=== PATIENT | male | born 1955 | race Caucasian/White ===

== ENCOUNTER 2017-02-19 15:53 | Inpatient (IN) | payer OTHER ==
[~2017-02-19] VITALS: Ht 185.4 cm; Wt 124.9 kg
--- NOTE | ~2017-02-19 | CO ---
ADMIT: 02/19/2017 RM/LOC: 307 [facility] MR#: [id number] [address] [address] MAYNOR MCKEON [address] [place] [address] Consultation SEX: M AGE: 61 : 1955 Corrected: 02/21/2017 0747 njv DATE OF CONSULTATION: 02/20/2017 ATTENDING PHYSICIAN: Zafar Small CONSULTING PHYSICIAN: Yo Ramirez MD HISTORY: This is a 61-year-old male seen in surgical consultation for Dr. Small for possible necrotizing soft tissue infection. Maynor reports that of last week, he started having pain and swelling in the right lower extremity. This suddenly worsened yesterday prompting a visit to the ER. He was found to have marked cellulitis of the right lower extremity. He was admitted, placed on IV antibiotic therapy. Overnight, he had progression of some of the wounds including those in proximal right thigh and groin area. These have had ischemic areas develop of the epidermis overlying them now. He does report that the area has hurt but does not hurt quite as bad now as it did earlier even in the day. He has gone into atrial fibrillation since admission. He was on Cardizem drip for that, but now is hypotensive and that has been held. He denies any prior difficulties with cellulitis in this extremity and denies any recent trauma to the wound. He is without other additional history. PAST MEDICAL HISTORY: Prediabetes is his only known comorbidity but he does not routinely see a physician. MEDICATIONS: At home none. ALLERGIES: NO KNOWN MEDICAL ALLERGIES. FAMILY HISTORY: Significant for diabetes and heart disease. SOCIAL HISTORY: He is with 2 children. He does not drink alcohol. Does not smoke. He does chew smokeless tobacco. REVIEW OF SYSTEMS: A 10-point review of systems was performed. Symptoms mentioned in the history of present illness are the only positives and the remainder of the review of systems is negative for recent change. PHYSICAL EXAM: GENERAL: Maynor is lethargic but does arouse and is oriented to person, place, and time. He does complain of some pain in the right leg currently. VITAL SIGNS: Temperature is overnight where a T-max of 104 degrees, blood pressure currently was 84/50, pulse of 90, respiratory rate was 26 last night, improved today to 20. HEENT: Head is atraumatic, normocephalic. Sclerae appear anicteric. Trachea is midline. NECK: There is no neck lymphadenopathy. LUNGS: Diminished at bilateral bases. HEART: Regular rate and rhythm. ADMIT: 02/19/2017 RM/LOC: 307 [facility] MR#: [id number] [address] [place] [phone] MAYNOR MCKEON [address] [place] [address] Consultation SEX: M AGE: 61 : 1955 ABDOMEN: Soft and nontender. EXTREMITIES: Reveal marked swelling in the right lower extremity with cellulitic changes below the knee. He also has areas of epidermal necrosis overlying the right proximal medial thigh measuring 7-8 cm in diameter. There is tenderness to palpation. I cannot palpate subcutaneous emphysema. NEUROLOGICAL: There is no neurologic deficit of any of his extremities. LABORATORY STUDIES: Lactic acid was 3.3, procalcitonin of greater than 136. White blood cell count on admission was 11.2, hemoglobin of 12.2, and platelet count of 116. Sodium 128, potassium 3.7, chloride 97, CO2 of 17, BUN of 38, creatinine of 3.2, and GFR of 20. IMPRESSION: 1. Sepsis. 2. Possible necrotizing soft tissue infection of the right groin and lower extremity. PLAN: I have recommended wound exploration with evaluation for underlying necrosis. I discussed the risks of this in detail with Maynor and the need if there is evidence of necrotizing soft tissue for debridement of that sharply. He understands that and agrees to proceed with exploration. He is currently receiving IV antibiotic therapy, IV fluid resuscitation for the sepsis, and is also currently starting on vasopressor support with Levophed. I have discussed his case in detail with Dr. Small as well and all are in agreement with the plan as described. Yo Ramirez MD/ alfredito JOB #: [id number] CC: Zafar Small, Attending Physician Zafar Small, Family Physician Corrected: 02/21/2017 0747 njv
--- NOTE | ~2017-02-19 | ECH ---
Transthoracic Echocardiography Report (TTE) Demographics Patient Name RENZO MCKEON Date of Study 02/20/2017 Patient Number [id number] Visit Number [id number] Date of 1955 Room Number 307 Accession Number [id number] Gender Male Age 61 year(s) Referring Geovanny Sotelo Manager Pipeline Reina Trevizo [facility] Physician Physician Interpreting Leilani Woodruff MD Music Therapy Teacher Physician Supervising Ordering Physician Geovanny Sotelo MD, MD/P Nurse Stress Supervisor Residential Conclusions Summary Technically difficult exam to perform with patient supine, head of bed 30 degrees and on ventilator. Images obtained are of fair quality. The estimated left ventricular ejection fraction is 60-65%. The left ventricle is moderately dilated . Mild left ventricular hypertrophy. The left atrium is mildly dilated by LA volume index measurement. No significant valvular abnormalities. Procedure Type of Study TTE procedure:Echo Complete SF. Procedure Date Date: 02/20/2017 Start: 02:49 PM Technical Quality: Fair due to patient on ventilator. Indications:Atrial fibrillation and Hypotension. Additional Indications:on ventilator Appropriate Use Criteria: 9 Height: 73 inches Weight: 275 pounds BSA: 2.46 m Rhythm: Within normal limits HR: 94 bpm BP: 67/47 mmHg M-Mode/2D Measurements LV Diastolic Dimension: 6.55 cm LV Systolic Dimension: 4.87 cm LV Septum Diastolic: 0.98 cm LV PW Diastolic: 1.18 cm AO Root Dimension: 2.52 cm Cardiac Output: 3.95 l/min LA Dimension: 4.29 cm Cardiac Index: 1.61 l/min*m LA volume index: 41 ml/m LVOT: 1.68 cm RV Base: 3.5 cm LVOT VTI: 18.97 cm RV Mid: 2.8 cm LV Stroke volume: 42.03 ml RV Length: 6.9 cm LV Stroke volume index: 17.09 ml/m TAPSE: 1.7 cm Doppler Measurements AV Peak Velocity: 1.69 m/s MV Peak E-Wave: 1.31 m/s AV Peak Gradient: 11.42 mmHg AV Mean Gradient: 8 mmHg LVOT Peak Velocity: 1.18 m/s AV Area (Continuity):1.36 cm PV Peak Velocity: 1.14 m/s PV Peak Gradient: 5.2 mmHg RA Area: 13.48 cm Findings Left Ventricle The left ventricle is moderately dilated . Mild left ventricular hypertrophy. Diastolic function indeterminate due to patient's arrhythmia. Right Ventricle Normal right ventricle structure and function. Left Atrium The left atrium is mildly dilated by LA volume index measurement. Right Atrium Normal right atrial size. Mitral Valve Normal mitral valve structure and function. Mild mitral regurgitation by color Doppler. Aortic Valve The aortic valve was not well imaged. Tricuspid Valve Normal tricuspid valve structure and function. Trivial tricuspid regurgitation by color Doppler. Pulmonic Valve The pulmonic valve is not well visualized. Pericardial Effusion No evidence of pericardial effusion. Miscellaneous Visualized portions of the aortic root and ascending aorta appear normal in size. Pleural Effusion No evidence of pleural effusion. Contractility Score LV regional wall motion:(0-Non visualized 1-Normal 2-Hypokinesis 3-Akinesis 4-Dyskinesis 5-Aneurysm) Signature
--- NOTE | 2017-02-20 12:32 | HP ---
ADMIT: 02/19/2017 RM/LOC: 307 [facility] MR#: [id number] [address] [address] RENZO PACE [address] [place] [address] History and Physical SEX: M AGE: 61 : 1955 DATE OF SERVICE: CHIEF COMPLAINT: Weakness, chills, and rigors. HISTORY OF PRESENT ILLNESS: Renzo Pace is a very nice 61-year-old man with a past medical history of prediabetes per some health fair evaluations. 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 He is accompanied by his , who is very nice. She informs me that he got sick initially about . Did not want to come into the ER. He has not been to a doctor for years, but ultimately she convinced him to come in. He is evaluated in the ER and noted to be severely ill with severe sepsis. Dr. Torres did initiate appropriate goal-directed therapy with 30 mL/kg fluid resuscitation as well as initiation of antibiotic therapy. 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 He did have a tick bite on his right chest, but no other rashes or anything to speak of. He did have sudden onset of some redness and an ulcer on his right lower rees. He does have some edema of his lower extremities chronically. He did develop redness, which distally track up into his right leg. He has severe cellulitis on his right lower extremity as well as into his right medial thigh. He otherwise does not drink alcohol. He does not smoke. He does chew during the days when he works. He does have some poor dentition as well. He takes no medications. Right now, he is not in pain, he is a bit tremulous and he is alert and oriented and interacting appropriately; however, he is quite uncomfortable. PAST MEDICAL HISTORY: Prediabetes per health fair. MEDICATIONS: None. ALLERGIES: NONE. FAMILY HISTORY: Mother of diabetes. Brothers and sisters; one brother committed suicide and did have other family members, they have in an apartment fire. Father is living with heart disease. He is and he does have 2 children, they are healthy. 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 He does not drink alcohol. He does not smoke, but he does chew regularly. He has not been to the doctor for a very long time and he does have some poor dentition. REVIEW OF SYSTEMS: Complete review of systems reviewed per HPI. PHYSICAL EXAMINATION: VITAL SIGNS: Blood pressure 171/81, pulse is 126, respiratory rate 26. He is 95% on room air and his temperature is 102.4. GENERAL: He is alert and oriented x3. He is uncomfortable. He does have some rigors. HEENT: Normocephalic, atraumatic. Eyes, extraocular movements are intact. Pupils equal, round, responsive to light. There is some slight. He does have no nasal discharge. Very dry mucous membranes. He does have furrowing of his ADMIT: 02/19/2017 RM/LOC: 307 [facility] MR#: [id number] [address] [place] [id number] RENZO PACE [address] [place] [address] History and Physical SEX: M AGE: 61 : 1955 tongue. Severely poor dentition on his mandibular teeth, multiple decayed teeth. NECK: Supple. HEART: Tachycardic, but regular. LUNGS: Diminished bilaterally. ABDOMEN: Soft, nontender. EXTREMITIES: He does have some pedal edema. He has an ulcer on his anterior rees, cellulitis of his right lower extremity, cellulitis of his left upper and medial thigh. No erythema or redness or pain into his scrotum or his penis. LABORATORY AND X-RAY DATA: Hemoglobin is 13.2, white blood cells are 13.7, platelets 147, lactic acid elevated at 5.1, INR is mildly prolonged 1.18, pH is 7.36, pCO2 is 19, PO2 is 64, blood cultures are drawn and pending. Sodium is 124, potassium is 4.1, chloride is 87, bicarb is 14, glucose is 522, BUN is 34, creatinine is 2.6, calcium is 8.9, magnesium is 1.9, total protein 7.5, albumin is 2.6, AST is 22, ALT is 27, gap is 27, troponin is less than 0.015. CK-MB is 1.5, CK is 168, hemoglobin A1c is 12.6, serum ketones are small. Corrected sodium is approximately 134 secondary to accounting for his glucose. ASSESSMENT AND PLAN: 1. Severe sepsis. 2. Cellulitis. 3. Acute renal failure. 4. Hyperosmolar hyperglycemic state. 5. Type 2 diabetes mellitus. 6. Poor dentition. 7. Sinus tachycardia. 8. Hyponatremia. 9. Prolonged anion gap. 10.Lactic acidosis. 11.Metabolic acidosis. This is a 61-year-old man, who has very minimal medical evaluation in years. Had a rather sudden onset pain in is right anterior rees with ulcer, did develop progressive cellulitis. He does have pre-diabetes. Only thing of his history of tobacco use. The patient is severely ill with severe sepsis. He does have multiple metabolic derangements. He has multi-system dysfunction with acute renal failure and various pH disturbances. Secondary to some prediabetes and probably long-standing type 2 diabetes, even though he has serum ketones, I think he is more consistent with a hyperglycemic hyperosmolar state. However, we are going to treat him with an aggressive insulin infusion protocol. We are going to give him the 30 mL/kg fluid resuscitation followed by 150 mL an hour of normal saline. I did KCl as well as we will go ahead and maintain him on some broad antibiotics with Zosyn, vancomycin as well as Levaquin. With his tick bite exposure, I will add some doxycycline as well. We will monitor with q.4 hours labs and we will maintain him on just some clears or water, otherwise n.p.o. We will place him on some heparin subcu for prophylaxis. We will have Wound Care see him, put him on some EdemaWear as ADMIT: 02/19/2017 RM/LOC: 307 [facility] MR#: [id number] [address] [address] RENZO PACE [address] [place] [address] History and Physical SEX: M AGE: 61 : 1955 well. Cardiac enzymes are negative. I will go ahead and get a 12-lead EKG as well. I discussed with his as well as Renzo that he is severely critically ill and is very fortunate that his did bring him into the hospital as he does need aggressive therapy at this time. There is no crepitus or anything like that. No areas of necrosis. There is no pain in the scrotum or his penis. There is no cellulitis. If this does progress into his genitals, then we will certainly need to progress with higher level imaging and if that is the case and if he does have transition into the scrotum or penis, we will have to consider transition to an alternate institution. We will proceed aggressively and adjust our plan accordingly based on his clinical progress. I discussed this plan with the patient, who expressed understanding, was in agreement, and had no further questions. Zafar Small MD/ alfredito JOB #: [id number] CC: Zafar Small, Attending Physician Zafar Small, Family Physician
--- NOTE | 2017-02-20 14:27 | DS ---
ADMIT: 02/19/2017 RM/LOC: 307 [facility] MR#: [id number] [address] [address] RENZO MCKEON [address] [place] [address] Discharge Summary SEX: M AGE: 61 : 1955 ADMISSION DATE: 02/19/2017 DISCHARGE DATE: 02/20/2017 ATTENDING AT TIME OF DISCHARGE: Zafar Small MD CONSULTATIONS: 1. Ryne Jean MD, Critical Care Medicine. 2. Yo Ramirez MD, General Surgery. 3. Lucho Duke MD, Cardiology. 4. Radha Ochoa MD, Infectious Disease FINAL DIAGNOSES: 1. Necrotizing fasciitis. 2. Severe sepsis. 3. Acute renal failure. 4. Hyperglycemic, hyperosmolar state, resolved. 5. Type 2 diabetes mellitus. 6. New atrial fibrillation. 7. Cellulitis. 8. Chronic venous stasis. 9. Lactic acidosis. 10.Metabolic acidosis. 11.Hypophosphatemia. 12.Tobacco abuse. 13.Hyponatremia REASON FOR ADMISSION: Please see H and P; however briefly, admitted with cellulitis, presence for 4 days. HOSPITAL COURSE: Initiated on broad-spectrum antibiotic therapy as well as aggressive goal-directed therapy for sepsis. The patient did develop necrosis on medial thigh, no present on admission. He is taken into the OR. Does have local debridement with Dr. Ramirez. The patient does require addition of Levophed as well as bicarbonate infusion to correct acid-base disturbances. He is maintained on aggressive fluid resuscitation. He has approximately 12 L infused at this time. He did develop atrial fibrillation with rapid ventricular response, which has since converted, weaning off the Cardizem infusion. Receiving broad-spectrum antibiotics now, initially on vancomycin and Zosyn, Levaquin and doxycycline secondary to a history of tick bite and a small local irritation in his right chest, transitioned to daptomycin, clindamycin as well as Zosyn. He is hemodynamically stabilizing at this time with normal sinus rhythm, heart rates of 90s, appropriate blood pressures with MAPs of 65 or greater. However, with persistent acid-base disturbance, 7.0 in the OR, now 6.9, initiating on further bicarbonate infusion. I have contacted [facility] who has accepted the patient. We have also contacted the flight team. When we have improved his acid-base disturbances, stabilized his oxygenation, do plan to transport patient by air to the [facility]. ADMIT: 02/19/2017 RM/LOC: 307 [facility] MR#: [id number] [address] [place] [phone] RENZO MCKEON [address] [place] [address] Discharge Summary SEX: M AGE: 61 : 1955 DISPOSITION: [facility] DISCHARGE CONDITION: Stable for transfer by air, but guarded prognosis. MEDICATIONS: Please see transfer medications. TRANSFER INSTRUCTIONS: The patient will transfer by air to the [facility] to the Surgical Critical Care Services. The patient will likely need further debridement for necrotizing fasciitis. Will also need continued critical care management. I had a discussion with the in detail including the severe nature of his illness as well as the need to transfer him to a tertiary [facility]. She does express understanding of this plan, expresses agreement and had no further questions. Thirty-five minutes spent on discharge activities of the patient. Zafar Small MD/ poli JOB #: [id number] CC: Zafar Small MD, Attending Physician Zafar Small MD, Family Physician
--- NOTE | 2017-02-20 16:22 | CO ---
ADMIT: 02/19/2017 RM/LOC: 307 [facility] MR#: [id number] [address] [address] RENZO PACE [address] [place] [address] Consultation SEX: M AGE: 61 : 1955 DATE OF CONSULTATION: 02/20/2017 ATTENDING PHYSICIAN: Zafar Small CONSULTING PHYSICIAN: Ryne Jean MD HISTORY OF PRESENT ILLNESS: Mr. Pace is a 61-year-old white male, seen in consultation for acute severe sepsis, acute respiratory failure, and ventilator management. He is 61-year-old male, with no previous medical history, however, he has not been in to see a doctor in about 30 years. It noted on his admitting labs that his hemoglobin A1c was greater than 12, and obviously he likely has diabetes. 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 However, there was report of a tick bite on his chest sometime ago without any problems. He was presumptively admitted with diagnosis of necrotizing fasciitis. He was seen in the emergency room with severe sepsis, was given IV fluid resuscitation and started on antibiotic therapy. Clinically looked a little bit better today, but then his lower extremity started having worsening severe cellulitis with an area that was black and necrotizing. He subsequently underwent emergent surgery today with debridement of his wound and obtaining cultures. Antibiotics were also adjusted. It was noted as well that he went into atrial fibrillation, was placed on Cardizem, spontaneously converted back to sinus rhythm. Postoperatively, he was seen, was intubated and sedated on mechanical ventilation. PAST MEDICAL HISTORY: Unremarkable. However, as mentioned above, he has significant elevation of his hemoglobin A1c. ALLERGIES: HE HAS NO LISTED MEDICAL ALLERGIES. MEDICATIONS: He is on no medications prior to entry into the hospital. SOCIAL HISTORY: He is , lives at home with his . Nonsmoker, though he does chew smokeless tobacco. FAMILY HISTORY: Heart disease and diabetes. REVIEW OF SYSTEMS: Not able to be obtained from the patient at this time because of his critical status. ADMIT: 02/19/2017 RM/LOC: 307 [facility] MR#: [id number] [address] [phone] RENZO PACE [address] [place] [address] Consultation SEX: M AGE: 61 : 1955 PHYSICAL EXAM: VITAL SIGNS: Currently was afebrile (in fact hypothermic). It was noted T-max overnight was 103.6. Pulse now 100. Blood pressure in the 90 systolic. Oxygen saturations in the upper 80s. He initially came back on mechanical ventilation, tidal volume of 400 with a rate of 15, and 100% oxygen and 10 of PEEP. After arterial blood gases returned, he had his rate increased to 20 and tidal volume increased to 450. He is also started on bicarb infusion. HEENT: Show endotracheal tube in place. LUNGS: Diminished but clear bilaterally without significant rales, rhonchi, or wheezes. HEART: Regular. ABDOMEN: Absent bowel sounds. Slightly distended. No guarding or rigidity identified. EXTREMITIES: Reveal cool peripheral findings. He does have bilateral pulses in the lower extremities. Postoperative dressings in place, both the thigh and lower extremity. He does have some stasis changes on the left side. LABS AND X-RAYS: Reviewed as mentioned above. ASSESSMENT: Severe sepsis with septic shock, has responded partially to fluid resuscitation, he is now on Levophed. May need to consider adding either vasopressin or epinephrine to maintain pressures. He has necrotizing fasciitis of soft tissue of his right lower extremity. He has undergone surgical debridement and cultures. Antibiotics have been adjusted accordingly as well. He has diabetes mellitus. He has severe metabolic acidosis secondary to his infection. PLAN: As mentioned above, we are going try and stabilize him here with blood pressure, improve his pH, and then plan is to transfer to the [facility] for further care. Likely he will need more surgery and debridement, continue antibiotics. He is at high risk for ARDS, although I do not see any on his current chest x-ray. Additionally, he had transient atrial fibrillation, which may have been response to his infection and sepsis, need to be monitored. We will continue to assist here prior to his transfer. Ryne Jean MD/ alfredito JOB #: [id number] CC: Zafar Small, Attending Physician ADMIT: 02/19/2017 RM/LOC: [address] [address] MR#: [id number] [address] [place] [phone] RENZO PACE [address] [place] [address] Consultation SEX: M AGE: 61 : 1955 Zafar Small, Family Physician
--- NOTE | 2017-02-22 08:33 | OR ---
ADMIT: 02/19/2017 RM/LOC: [address] [place] [address] MR#: [id number] [address] [address] RENZO MCKEON [address] [place] [address] Operative/Delivery Room Report SEX: M AGE: 61 : 1955 SURGERY DATE: 02/20/2017 SURGEON: Yo Ramirez MD PREOPERATIVE DIAGNOSIS: Possible necrotizing soft tissue infection of the right proximal medial thigh and right rees. POSTOPERATIVE DIAGNOSIS: Possible necrotizing soft tissue infection of the right proximal medial thigh and right rees. PROCEDURE: Debridement of necrotizing soft tissue and infection extending to the fascia of the right proximal medial thigh and right anterior rees encompassing wounds measuring 15 cm x 8 cm, 5 x 5 cm, and 6 x 6 cm. ANESTHESIA: General. ESTIMATED BLOOD LOSS: Minimal. DESCRIPTION OF PROCEDURE: The patient was taken to the operating room and placed supine on the operating room table. General anesthesia was established. The right leg was prepped and draped and extremity draped in the usual fashion. Inspection of the epidermal necrotic area in the right proximal medial thigh, an incision was made through this, which revealed necrotic tissue extending to the subcutaneous fat. This was debrided sharply back to normal bleeding viable skin margins. Dissection proceeded also deeply through all the subcutaneous fat to the fascia. The fascia appeared to be viable as did the underlying musculature. The fat was debrided back to healthy yellow-appearing bleeding fat. There was no residual martin tissue upon completion. In the separate necrotic area of the proximal medial thigh, similar sharp debridement was performed back to viable margins of skin and subcutaneous tissue. This again also extended to the fascia, but did not seem to involve the fascia or muscle. There was no clear direct communication ADMIT: 02/19/2017 RM/LOC: [address] [place] [address] MR#: [id number] [id number] [facility] [address] [place] [id number] MIKE RENZO Baxter [address] [place] [address] Operative/Delivery Room Report SEX: M AGE: 61 : 1955 between the two areas of necrosis at this level. There was no other surrounding evidence for residual necrotic tissue in the thigh. Inspection of the right anterior rees, however, revealed necrotic tissue. The skin was incised at this level, and again skin and subcutaneous tissue was . This was again debrided sharply back to live viable nonischemic portions. The tissue was debrided down to the fascia. The musculature and fascia appeared intact without extension into the compartments. Cautery was used for hemostasis of the viable margins. The wounds were then packed with Betadine- soaked Kerlix. The patient tolerated the procedure in guarded condition. Dressings were placed. The patient was then transported back to the ICU and arrangements were made for transfer to the [facility] for their expertise and care. Yo Ramirez MD/ alfredito JOB #: [id number] CC: Zafar Small MD, Attending Physician Zafar Small MD, Family Physician
--- NOTE | 2017-02-26 21:28 | ER ---
ADMIT: 02/19/2017 RM/LOC: 307 [facility] MR#: [id number] [address] [address] RENZO MCKEON [address] [place] [address] Emergency Room Report SEX: M AGE: 61 : 1955 DATE: 02/19/2017 CHIEF COMPLAINT: Right leg pain and flu-like symptoms. HISTORY OF PRESENT ILLNESS: The patient is a 61-year-old male, who has no chronic medical conditions, but apparently is borderline diabetic, who comes in for 2 days of worsening pain, swelling, and redness on his right lower extremity. He denies any trauma. He states that the redness in his lower leg has been expanding over the past 24 to 48 hours, he has had some weeping from it and actually developed some redness in his proximal thigh. He states he feels terrible drinking and urinating a lot and feels nauseous, but has not been vomiting. He denies any chest pain or any abdominal pain. Additionally, states he was bit by a tick on his right anterior chest within 12 to 24 hours prior to the lesion on his right leg becoming painful and red. PAST MEDICAL HISTORY: Unremarkable other than borderline diabetes. No other reason he thinks he has borderline diabetes, he has had his blood sugar checked, his health is fair in the past, but he does not see a doctor regularly. MEDICATIONS: None. ALLERGIES: NONE. SOCIAL HISTORY: Denies smoking or drug use, but does use chewing tobacco. PHYSICAL EXAMINATION: VITAL SIGNS: Initial blood pressure is 143/59, heart rate 130, respirations 32, temp 102.4, saturations 97% on room air. GENERAL: The patient is alert, does appear quite uncomfortable. Airway is patent. HEART: Tachycardic. LUNGS: Clear to auscultation, but he is tachypneic. ABDOMEN: Soft, nontender. EXTREMITIES: Upper extremities show no signs of injuries or trauma. Right lower extremity shows he has a large area encompassing almost the entire right anterior lower leg that is erythematous, warm, has an area of weeping on the distal aspect of it. He also has some redness in his right anterior medial thigh, but does not have any on his scrotum or testicles that I can appreciate. IMAGING: Chest x-ray shows nothing acute. LABORATORY DATA: White count of 13.7, hemoglobin of 13.2, platelets 147. Sodium 124, carbon dioxide 14, BUN 34, glucose 522, creatinine 2.6, anion gap 27, hemoglobin A1c 12.6, small ketones in the serum, procalcitonin 51.35, lactic acid 5.1, CK 168, MB 1.5, troponin 0.015, INR 1.18. ABG shows a pH 7.36, pCO2 of 19.7, PO2 of 64. EMERGENCY DEPARTMENT COURSE: When the patient arrived, I examined his leg and ADMIT: 02/19/2017 RM/LOC: 307 [facility] MR#: [id number] [address] [place] [id number] RENZO MCKEON [address] [place] [address] Emergency Room Report SEX: M AGE: 61 : 1955 his history, I am concerned of sepsis. We went ahead and started our sepsis protocol. Once we got the patient's lactic acid back, we went ahead and initiated our 30 mL/kg fluid resuscitation. We did get antibiotics ordered and started in the Emergency Department. I ordered vancomycin and Zosyn. I contacted Dr. Small as the patient does not have a primary care physician, Dr. Small was on [facility]. He has graciously agreed to admit the patient and will be taking care of him in the ICU. The patient is admitted in critical condition, 1 hour of critical care time was spent on this patient. DIAGNOSES: 1. Diabetic ketoacidosis. 2. Severe sepsis. 3. Lactic acidosis. 4. Right lower leg cellulitis. Tonny Torres MD/ alfredito JOB #: [id number] CC: Zafar Small MD, Attending Physician Zafar Small MD, Family Physician
--- NOTE | 2017-02-28 10:32 | CO ---
ADMIT: 02/19/2017 RM/LOC: 307 [facility] MR#: [id number] [address] [address] RENZO PACE [address] [place] [address] Consultation SEX: M AGE: 61 : 1955 DATE OF CONSULTATION: 02/20/2017 ATTENDING PHYSICIAN: Zafar Small CONSULTING PHYSICIAN: Radha Ochoa MD REASON FOR CONSULT: Right lower extremity necrotizing fasciitis. Thank you, Dr. Small for the consult and involving me in this patient's care. HISTORY OF PRESENT ILLNESS: Mr. Pace is a 61-year-old man who presented to ER yesterday with complaint of weakness, chills, and rigors. History was obtained from prior notes as the patient is currently in respiratory distress on BiPAP and pressors, not able to answer any questions. Per the notes, he has history of pre-diabetes and has not seen a primary care doctor for a long time. 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 He presented with 2 days of worsening pain, swelling, and redness in his right lower extremity and denied any trauma. He also reported a tick bite on his right anterior chest. He was noted to be in hyperosmolar hyperglycemic state and was started on insulin drip. He required aggressive fluid resuscitation overnight, almost around 8 L of fluid with minimal urine output. His right leg had some necrotic patches and blisters and was evaluated by Dr. Ramirez who was concerned about possible necrotizing fasciitis. He was initially started on vancomycin, Zosyn, doxycycline, and levofloxacin by Dr. Small. Overnight, he also developed atrial fibrillation with RVR and now is requiring Levophed. PAST MEDICAL HISTORY: Prediabetes per the [facility]. ALLERGIES: NO KNOWN DRUG ALLERGIES. CURRENT MEDICATIONS: 1. DuoNeb. 2. Insulin sliding scale. 3. Diltiazem drip. 4. Vancomycin 1.75 g once daily. 5. Zosyn 3.375 g every 8 hours. 6. Doxycycline 100 mg twice daily. FAMILY HISTORY: Significant for heart disease in his father. 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 Denies any alcohol or recreational drug use. He does not smoke but chews tobacco regularly. REVIEW OF SYSTEMS: Unable to obtain as patient is currently on BiPAP and minimally arousable. PHYSICAL EXAMINATION: VITAL SIGNS: Current temperature is 97.7, T-max 103.1, heart rate 103, respirations 35, blood pressure 170/69, and 92% on BiPAP. ADMIT: 02/19/2017 RM/LOC: 307 [facility] MR#: [id number] [address] [place] [phone] RENZO PACE [address] [place] [address] Consultation SEX: M AGE: 61 : 1955 GENERAL: In moderate respiratory distress. Currently on BiPAP, unarousable. CHEST: Decreased breath sounds bilaterally. CARDIOVASCULAR: S1, S2 heard. Tachycardia. ABDOMEN: Soft, nontender. Active bowel sounds. MUSCULOSKELETAL: The right lower extremity, there is diffuse erythema and necrotic patches on the medial side of the thigh as well as on the medial side of the leg. There are 2 fluid-filled blisters on the right lower extremity, 4+ edema. PSYCH: Currently unresponsive. NEURO: Currently minimally arousable on BiPAP. LABORATORY DATA: Hemoglobin A1c is 12.6. BMP showed sodium of 129, carbon dioxide 15, creatinine 3.6. CK 302, troponin I 0.103. Blood cultures are no growth to date. CBC shows white count of 11.2, hemoglobin 12.2, and platelets 116. ASSESSMENT AND PLAN: 1. Right lower extremity possible necrotizing fasciitis/cellulitis. Plan for incision and debridement in OR now. I will start him on clindamycin 900 mg every 8 hours. Continue Zosyn 3.375 g every 8 hours. I will stop the vancomycin given his acute kidney injury and switch him to daptomycin 6 mg/kg once daily. 2. Hyperosmolar hyperglycemic state, on insulin drip. Anion gap closed. 3. Septic shock secondary to #1. 4. Acute kidney injury. 5. Acute respiratory failure on BiPAP. 6. Atrial fibrillation with rapid ventricular response. 7. Hyponatremia. 8. Uncontrolled diabetes mellitus. Thank you for the consult. I will continue to follow the patient. Radha Ochoa MD/ alfredito JOB #: [id number] CC: Zafar Small, Attending Physician Zafar Small, Family Physician
--- NOTE | 2017-03-20 15:03 | CO ---
ADMIT: 02/19/2017 RM/LOC: 307 [facility] MR#: [id number] [address] [address] MAYNOR MCKEON [address] [place] [address] Consultation SEX: M AGE: 61 : 1955 ATTENDING PHYSICIAN: Zafar Small CONSULTING PHYSICIAN: Zandra Duke MD REASON FOR CONSULT: New-onset atrial fibrillation. This is Jodi Burt RN, scribing for Dr. Ranjan Duke. HISTORY OF PRESENT ILLNESS: Maynor is a 61-year-old gentleman, I have been asked see in Cardiology consultation by Dr. Small for new-onset atrial fibrillation. He was admitted last night with severe sepsis. Currently, he is in and out of consciousness, and most of his history is obtained from the chart and his . He has no prior history of coronary artery disease and no prior history of cardiac workup. Newly diagnosed diabetes. It sounds like in the past he was told he was prediabetic. Hemoglobin A1c on admission is 12.6. He chews tobacco. states that during health-care screening, his blood pressure after resting for quite a while has been okay, it has been high here, I suspect he has had history of high blood pressure for a while. Father had history of coronary artery disease, premature with a heart attack in his 50s. His father has had a carotid endarterectomy as well as bypass surgery and pacemaker implant. Maynor presented to [facility] last night. His brought him in for fevers, confusion, and weakness. 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 He continued to feel sick. She was working over the weekend, and when she came home last night, he was lying in the hallway with his pants down, confused, and so she told him that she was going to call EMS. He then stated he did not want the EMS to come, so she drove him to the ER. On arrival to the ER, he was found to be in atrial fibrillation with RVR, and he did respond well to IV Lopressor. He has acute renal failure with creatinine of 3.6. His hemoglobin A1c is 12.6. His white count is 11.2. Phosphorus is 0.6. AST 63. He has been given IV fluids. Two sets cardiac enzymes have been performed with CK and MB being normal, second troponin of 0.103. Heart rates were anywhere from 120 to 140s on 20 mg an hour of Cardizem drip. He is also receiving multiple antibiotics and IV fluids. He has cellulitis in his right lower extremity as well as discoloration of his right upper thigh. At rest, he is in and out of consciousness and breathing about at least 30 respirations a minute. He denies any chest pain, shortness of breath, presyncope, or orthopnea. This is despite breathing rapidly while at rest. PAST MEDICAL HISTORY: 1. Newly diagnosed diabetes. 2. Chewing tobacco history. MEDICATIONS: He takes no home medications. Current medications in hospital include: ADMIT: 02/19/2017 RM/LOC: 307 [facility] MR#: [id number] [address] [address] MAYNOR MCKEON [address] [place] [address] Consultation SEX: M AGE: 61 : 1955 1. Heparin 5000 units subcutaneous every 8 hours. 2. Diltiazem drip 20 mg an hour. 3. Levaquin 500 mg IV q.24 hours. 4. Pepcid 20 IV b.i.d. 5. Vancomycin 1.25 g every 24 hours. 6. Vibramycin 100 mg q.12 hours. 7. Zosyn 3.375 g q.8 hours. He is currently on an insulin drip as well as IV fluids and IV fluids with potassium. ALLERGIES: NO KNOWN MEDICATION ALLERGIES. FAMILY HISTORY: Positive family history of premature coronary artery disease in father, who had bypass surgery as well as pacemaker, and carotid endarterectomy. Positive family history of diabetes in mom. SOCIAL HISTORY: Maynor is . He lives at home with his . 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 No alcohol or drug use. No caffeine. He does chew tobacco regularly. REVIEW OF SYSTEMS: Poor dentition. He is sedated. Review of systems is unobtainable due to patient mental status currently. PHYSICAL EXAMINATION: VITAL SIGNS: Blood pressure 170/69, heart rate 103, respirations 35, temperature 97.7, oxygenation 97% on O2. GENERAL: A well-nourished white male, in no acute distress. Confused. SKIN: Antares, warm and dry. EYES: Sclerae clear. No xanthelasmas. ENT: Oral mucosa is pink and moist. No jugular venous distention or carotid bruits. CHEST: Respirations are even and unlabored. Lungs are clear to auscultation. HEART: Irregularly irregular. Tachycardic. ABDOMEN: Soft and nontender. EXTREMITIES: No cyanosis or clubbing. 1 to 2+ edema bilaterally, lower extremity. SKIN: Right lower leg cellulitis PSYCHIATRIC: Alert and oriented. Mood and affect are appropriate. NEURO: Unable to assess. MUSCULOSKELETAL: Unable to assess. DIAGNOSTIC DATA: Sodium 129, potassium 3.7, BUN 41, creatinine 3.6, glucose 223, phosphorus 0.6, AST 63, ALT 40, magnesium 2.2, INR 1.19. White blood cell count 11.2, hemoglobin 12.2, hematocrit 35.7, platelets 116. CK 302, troponin 0.103, hemoglobin A1c 12.6. ASSESSMENT AND PLAN: 1. Atrial fibrillation. 2. Sepsis. ADMIT: 02/19/2017 RM/LOC: 307 [facility] MR#: [id number] [address] [address] MIKE MAYNOR Baxter [address] [place] [address] Consultation SEX: M AGE: 61 : 1955 3. Diabetes mellitus. 4. Family history of coronary artery disease. 5. Tobacco use. I recommend continuing rate control using Cardizem drip, and I will increase Lopressor to 5 mg IV every 2 hours p.r.n., heart rate greater than 110. Anticoagulate when okay with primary and possible surgery. Echocardiogram has already been ordered and this will be performed once his heart rate is a little bit better controlled. I discussed with his today ischemic evaluation at a later date when he is over this current illness. Thank you for the consultation. "I have read and agree with the documentation that has been completed regarding this visit. By signing this record, I attest that the documentation was completed in my physical presence and is an accurate record of the encounter." Jodi Burt RN / Zandra Duke MD / alfredito JOB #: [id number] CC: Zafar Small, Attending Physician Zafar Small, Family Physician
== END 2017-02-20 16:20 | disposition short-term general hospital (02) | DRG 853 ==
LOC: ER 15:53 → 3ICU 16:52
PROVIDERS: ADMIT Internal Medicine
PROC: 02HV33Z Insertion of Infusion Device into Superior Vena Cava, Percutaneous Approach (ICD-10-PCS; principal; 2017-02-20)
PROC: 5A1935Z Respiratory Ventilation, Less than 24 Consecutive Hours (ICD-10-PCS; 2017-02-20)
PROC: 0JBL0ZZ Excision of Right Upper Leg Subcutaneous Tissue and Fascia, Open Approach (ICD-10-PCS; 2017-02-20)
DX: A41.9 Sepsis, unspecified organism (principal); E11.00 Type 2 diabetes mellitus with hyperosmolarity without nonketotic hyperglycemic-hyperosmolar coma (NKHHC); J96.00 Acute respiratory failure, unspecified whether with hypoxia or hypercapnia; R65.21 Severe sepsis with septic shock; M72.6 Necrotizing fasciitis; N17.9 Acute kidney failure, unspecified; E87.2 Acidosis; E87.1 Hypo-osmolality and hyponatremia; L03.115 Cellulitis of right lower limb; I48.91 Unspecified atrial fibrillation; E83.39 Other disorders of phosphorus metabolism; I87.8 Other specified disorders of veins; F17.220 Nicotine dependence, chewing tobacco, uncomplicated; R00.0 Tachycardia, unspecified; S20.361A Insect bite (nonvenomous) of right front wall of thorax, initial encounter; Z82.49 Family history of ischemic heart disease and other diseases of the circulatory system